=== PATIENT | female | born 1945 | race Two or more races ===

== ENCOUNTER → 2022-04-05 | Emergency (ER) | payer OTHER ==
[~2022-04-05] VITALS: Ht 152.4 cm; Wt 44.5 kg
[~2022-04-05] MED LIST: EPINEPHrine HCL 1 MG/1 ML AMP SC ONE; FAMOTIDINE (10MG/ML) 2ML VL IV ONE; HYDR25CA PO; METH4PAK PO; diphenhdrAMINE HCL 50 MG/1 ML VL IV ONE; methylPREDNISolone SOD SUCC 125 MG/2 ML VL IV ONE
[2022-04-05 08:20] VITALS: BP 161/66
== END | disposition home or self-care (01) ==
LOC: ER 08:17
DX: T78.40XA Allergy, unspecified, initial encounter (principal); X58.XXXA Exposure to other specified factors, initial encounter
CPT/HCPCS: 96372; 96374; 96375; 99284; J0171; J1200; J2930; J3490